=== PATIENT | female | born 1985 | race Caucasian/White ===

== ENCOUNTER 2017-04-14 18:32 | Emergency (ER) | payer OTHER ==
[~2017-04-14] VITALS: Ht 162.6 cm; Wt 85.5 kg
[2017-04-14 18:57] VITALS: BP 119/73
== END 2017-04-15 00:01 | disposition home or self-care (01) ==
LOC: ER 18:34 → EEVIPCON 18:34 → ER 04-15 00:01
DX: T74.21XA Adult sexual abuse, confirmed, initial encounter (principal); S09.8XXA Other specified injuries of head, initial encounter; F17.200 Nicotine dependence, unspecified, uncomplicated; Y07.9 Unspecified perpetrator of maltreatment and neglect; Y93.89 Activity, other specified; Y92.89 Other specified places as the place of occurrence of the external cause; Y99.8 Other external cause status
CPT/HCPCS: 99284